=== PATIENT | female | born 1955 | race Caucasian/White ===

== ENCOUNTER 2020-03-11 11:06 | Emergency (ER) | payer OTHER ==
[2020-03-11 12:41] LABS: HEMATOCRIT 41.4 % (37.0-47.0); HEMOGLOBIN 13.5 g/dl (12.0-16.0); IMMATURE GRANULOCYTES 0.3 % (0.0-5.0); MEAN CELL VOLUME 90.6 fL CALC (80.0-100.0); MEAN CORPUSCULAR HGB 29.5 pG CALC (26.0-32.0); MEAN CORPUSCULAR HGB CONC 32.6 g/dL CAL (32.0-36.0); NEUT# 3.88 thou/uL (2.00-7.15); RED BLOOD COUNT 4.57 mill/uL (4.20-5.60); RED CELL DISTRI WIDTH 12.7 % (11.5-15.5)
[2020-03-11 12:57] LABS: ALBUMIN 4.2 g/dL (3.2-5.0); ALKALINE PHOSPHATASE 62 u/l (38-126); BILIRUBIN, TOTAL 0.3 mg/dL (0.0-1.4); BUN 12 mg/dL (8-23); BUN/CREATININE RATIO 16 (12-20 (CALC)); CHLORIDE 108 mmol/l (95-108); CREATININE 0.8 mg/dL (0.5-1.0); GFR > 60 ML/MIN (>=60 (CALC)); GFR FOR AFR.AMER. > 60 ML/MIN (>=60 (CALC)); POTASSIUM 4.1 mmol/l (3.5-5.1); SGOT/AST 64 u/l (9-36); SODIUM 141 mmol/l (137-146); TOTAL PROTEIN 6.8 g/dL (6.3-8.2)
[2020-03-11 12:58] LABS: ANION GAP 10 (6-22 (CALC)); CARBON DIOXIDE 27 mmol/l (22-30)
[2020-03-11 13:01] LABS: INTERNATIONAL NORMALIZED RATIO 3.4 RATIO (0.7-1.3); PROTHROMBIN TIME 32.1 SECONDS (9.0-12.5)
[2020-03-11] MEDS ORDERED: ATENOLOL25 MG PO (13:13)
[2020-03-11] MEDS ORDERED: WARFARIN SODIUM1 MG PO (13:13)
[2020-03-11] MEDS ORDERED: CVS OMEPRAZOLE20 M1 PO (13:13)
[2020-03-11] MEDS ORDERED: EFFEXOR XR75 MG/CAP PO (13:14)
[2020-03-11] MEDS ORDERED: ZYRTEC10 MG PO (13:14)
[2020-03-11] MEDS ORDERED: PEPCID20 MG PO (13:15)
[2020-03-11] MEDS ORDERED: ROSUVASTATIN CA20 MG PO (13:17)
[2020-03-11 13:58] VITALS: BP 102/67
== END 2020-03-11 14:00 | disposition left against medical advice (07) | DRG 313 ==
LOC: ED 11:06 → ED-I 13:21 → ED 14:00
PROVIDERS: Family Medicine
DX: R07.9 Chest pain, unspecified (principal); I48.91 Unspecified atrial fibrillation; I10 Essential (primary) hypertension; Z91.19 Patient's noncompliance with other medical treatment and regimen